=== PATIENT | male | born 1955 | race African-American/Black ===

== ENCOUNTER 2017-04-08 15:00 | Emergency (ER) | payer MEDICAID, SELFPAY ==
[2017-04-08 15:02] VITALS: BP 155/108; PULSE 96; RESP 17; TEMP 37.4; O2SAT 100; BMI 21.6
--- NOTE | 2017-04-08 15:18 | EKG12_ITS ---
Test Reason : ABDOMINAL PAIN Blood Pressure : / mmHG Vent. Rate : 065 BPM Atrial Rate : 076 BPM P-R Int : 154 ms QRS Dur : 090 ms QT Int : 382 ms P-R-T Axes : 072 048 069 degrees QTc Int : 397 ms Sinus rhythm with marked sinus arrhythmia Otherwise normal ECG Confirmed by SHERLEY FRANCIS, NAVJOT ([id number]), blueprint engineer DON SERRA ([id number] on 04/10/2017 12:59:12 PM Referred By: DANY Confirmed By:NAVJOT LEPE MD
[2017-04-08] MEDS: Ondansetron 4 MG/2 ML Vial IV (15:30)
[2017-04-08] MEDS: 0.9% Normal Saline 1,000 ML 1000 ML IV (15:30)
[2017-04-08] MEDS: HYDROmorphone 1 MG/ML Syringe 2 MG IV (15:30)
--- NOTE | 2017-04-08 15:38 | ED.VISSUMM ---
- ER Visit Summary Date of Service: 04/08/17 Chief Complaint: [Abdominal pain] History of Present Illness: The patient is a 61 M [resents to the emergency department chief complaint of abdominal discomfort that he has had for 7 -8 months. Patient has a history of chronic pancreatitis]. Patient normally takes Dilaudid 2 mg twice a day. Patient states that over last several days his pain medicines not helping. He describes severe pain in the epigastric region. Patient states that he is lost over 100 pounds in the last 7 or 8 months. Patient states he is having a hard time eating secondary to pain and nausea. Patient states that over last several days he has had urinary frequency. Patient denies any blood in his stool or black tarry stools. Patient has had small stools that have been hard and he is currently on a stool softener. Patient has prescription written for MiraLAX but has not started taking it yet. Physical Examination: [HEENT-PERRLA, EOMI. Cranial nerves II through XII grossly intact. TMs clear. Mucous membranes moist. No adenopathy. Cardiovascular-regular rate and rhythm without murmur or ectopy Lungs-clear to auscultation, chest wall stable without crepitus or subcu emphysema Abdomen-normoactive bowel sounds, soft. Patient has tenderness in the epigastric region to left upper quadrant. There is no rebound, rigidity, or peritoneal signs. Extremities-intact ?4, normal range of motion, normal pulses, atraumatic] Test Results: [EKG obtained showed a sinus rhythm with a ventricular rate of 65 bpm with occasional PACs. CBC with differential showed a white blood cell count of 3.7, hemoglobin 13, hematocrit 37, platelets 153. Chemistries unremarkable. LFTs were normal. Lipase was 65. Troponin was less than 0.02. Lactate was 1.0.] Emergency Department Course and Treatment: [Patient was given 2 L normal saline fluid boluses. Patient was medicated with Dilaudid 2 mg IV and Zofran 4 mg IV. Patient felt markedly improved. At this point I do not feel any imaging is indicated as this is his typical abdominal pain.] Treatment Plan: [And apparently has had biopsy of his pancreas recently which did not show any evidence of malignancy as on last CAT scan performed in this department there was concern for possible malignancy of his pancreas. Patient does follow up with a precipitator operator in [place] who recommended potentially placing a stent in his pancreatic ducts to help with the discomfort. Advised to follow-up with his precipitator operator.] Disposition: [Discharged to home in stable condition.] Impression: [Acute exacerbation of chronic abdominal pain] This note was generated with [employer] dictation software. It may contain incorrect words, spelling, and punctuation that were not noted in review of the chart prior to signing ED Disposition - Plan for ED Patient: Chief Complaint: Abd Pain Referrals: Gerald Irving DO [Primary Care Provider] -
[2017-04-08 15:41] LABS: Absolute Lymphocyte Count 1.11 X10^3/ul (0.83-4.51); Absolute Neutrophil Count 2.3 X10^3/uL (2.0-7.7); Basophil# 0.02 X10^3/uL; Basophil% 0.5 % (0-1); Eosinophil# 0.03 X10^3/uL; Eosinophils% 0.8 % (0-5); Hematocrit 36.8 % (40-54); Hemoglobin 13.1 g/dl (13.0-16.5); Lymphocyte # 1.11 X10^3/ul (4.0); Lymphocyte % 29.8 % (19-41); Mean Corp Hgb Conc 35.6 g/gl (32-36); Mean Corpuscular Hgb 31.6 pg (27.0-32.0); Mean Corpuscular Volume 88.7 fL (80-94); Mean Platelet Vol. 10.1 fl (6.2-12.0); Neutrophil # 2.27 X10^3/uL (2.7-7.7); Neutrophil % 60.9 % (47-70); POSITIVE COUNT NO; POSITIVE DIFFERENTIAL NO; POSITIVE MORPHOLOGY NO; Platelet Count 153 K/mm3 (150-450); RBC Distribution Width CV 11.9 % (11.6-14.6); RBC Distribution Width SD 38.1 fl (35.1-43.9); Red Blood Count 4.15 M/mm3 (4.6-6.2); White Blood Count 3.7 K/mm3 (4.4-11.0)
--- NOTE | 2017-04-08 15:41 | ED.DCSUM_ITS ---
- ER Visit Summary Date of Service: 04/08/17 Chief Complaint: [Abdominal pain] History of Present Illness: The patient is a 61 M [resents to the emergency department chief complaint of abdominal discomfort that he has had for 7 -8 months. Patient has a history of chronic pancreatitis]. Patient normally takes Dilaudid 2 mg twice a day. Patient states that over last several days his pain medicines not helping. He describes severe pain in the epigastric region. Patient states that he is lost over 100 pounds in the last 7 or 8 months. Patient states he is having a hard time eating secondary to pain and nausea. Patient states that over last several days he has had urinary frequency. Patient denies any blood in his stool or black tarry stools. Patient has had small stools that have been hard and he is currently on a stool softener. Patient has prescription written for MiraLAX but has not started taking it yet. Physical Examination: [HEENT-PERRLA, EOMI. Cranial nerves II through XII grossly intact. TMs clear. Mucous membranes moist. No adenopathy. Cardiovascular-regular rate and rhythm without murmur or ectopy Lungs-clear to auscultation, chest wall stable without crepitus or subcu emphysema Abdomen-normoactive bowel sounds, soft. Patient has tenderness in the epigastric region to left upper quadrant. There is no rebound, rigidity, or peritoneal signs. Extremities-intact ?4, normal range of motion, normal pulses, atraumatic] Test Results: [EKG obtained showed a sinus rhythm with a ventricular rate of 65 bpm with occasional PACs. CBC with differential showed a white blood cell count of 3.7, hemoglobin 13, hematocrit 37, platelets 153. Chemistries unremarkable. LFTs were normal. Lipase was 65. Troponin was less than 0.02. Lactate was 1.0.] Emergency Department Course and Treatment: [Patient was given 2 L normal saline fluid boluses. Patient was medicated with Dilaudid 2 mg IV and Zofran 4 mg IV. Patient felt markedly improved. At this point I do not feel any imaging is indicated as this is his typical abdominal pain.] Treatment Plan: [And apparently has had biopsy of his pancreas recently which did not show any evidence of malignancy as on last CAT scan performed in this department there was concern for possible malignancy of his pancreas. Patient does follow up with a tool machine setup operator in [place] who recommended potentially placing a stent in his pancreatic ducts to help with the discomfort. Advised to follow-up with his tool machine setup operator.] Disposition: [Discharged to home in stable condition.] Impression: [Acute exacerbation of chronic abdominal pain] This note was generated with [employer] dictation software. It may contain incorrect words, spelling, and punctuation that were not noted in review of the chart prior to signing ED Disposition - Plan for ED Patient: Chief Complaint: Abd Pain Referrals: Gerald Irving DO [Primary Care Provider] -
[2017-04-08 16:16] LABS: ALB/GLOB Ratio 1.1 RATIO (0.9-2.4); AST(SGOT) 11 U/L (15-37); Alanine Aminotransfer ALT/SGPT 18 U/L (16-61); Albumin, Serum 4.2 g/dL (3.2-5.0); Alkaline Phosphatase 58 U/L (45-117); Anion Gap 10 (5-15); BUN 14 mg/dL (7-18); BUN/Creat Ratio 14.2 RATIO (10-20); Calcium,Total 9.7 mg/dL (8.5-10.1); Chloride 101 mmol/L (98-107); Creatinine, Serum 0.98 mg/dL (0.70-1.30); EST Glomerular Filtration Rate 83 mL/min (>60); Est Glom Filt Rate - Afr Amer 100 mL/min (>60); Estimated Creatinine Clearance 76.34 ml/min; Globulin 3.7 g/dL (2.2-4.2); Glucose 123 mg/dL (74-106); Lipase 65 U/L (73-393); Potassium 3.8 mmol/L (3.5-5.1); Protein, Total 7.9 g/dL (6.4-8.2); Sodium Level 136 mmol/L (136-145)
[2017-04-08] MEDS: 0.9% Normal Saline 1,000 ML 999 ML IV (16:26)
[2017-04-08 16:33] LABS: Bacteria 0 SEEN /hpf (None Seen); Color, Urine Yellow (Yellow); Glucose, Dipstick Normal (Normal); Ketone-Dipstick Negative (Negative); Leukocyte Esterase-Dipstick Negative /ul (Negative); Mucous, Urine 0 SEEN /hpf (<or=2+); Nitrite-Dipstick Negative (Negative); Occult Blood-Urine Negative /ul (Negative); Protein-Dipstick 30 mg/dl (Negative); Specific Gravity, Urine 1.015 (1.002-1.030); Urine Bilirubin Dipstick Negative (Negative); Urine Clarity Clear (Clear); Urine Urobilinogen Normal (Normal); White Blood Cells 0 SEEN /hpf (0-5)
[2017-04-08 16:40] LABS: Red Blood Cells-Urine 0-5 SEEN /hpf (0-5); Squamous Epithelial Cells - UA 0-5 SEEN /hpf (0-5)
--- NOTE | 2017-04-08 17:09 | DCINST.ED_ITS ---
ED Disposition - Plan for ED Patient: Chief Complaint: Abd Pain Instructions: ED Abdominal Pain Unkn Cause Referrals: Gerald Irving DO [Primary Care Provider] - 3-5 Days Additional Instructions: follow up with your radiological health specialist in 3-5 days
[2017-04-08 17:10] VITALS: BP 134/92; PULSE 75; RESP 16; O2SAT 100
[2017-04-08 17:14] VITALS: BP 137/92; PULSE 75; RESP 16; O2SAT 100
== END 2017-04-08 17:18 | disposition home or self-care (01) ==
LOC: ED 16:10
PROVIDERS: Emergency Provider Emergency Medicine; Family Provider Family Medicine; PCP Family Medicine
DX: R10.9 Unspecified abdominal pain (principal); G89.29 Other chronic pain; R11.0 Nausea; I49.1 Atrial premature depolarization; I10 Essential (primary) hypertension; Z79.82 Long term (current) use of aspirin; Z79.899 Other long term (current) drug therapy; Z85.46 Personal history of malignant neoplasm of prostate; Z87.19 Personal history of other diseases of the digestive system
CPT/HCPCS: 80053; 81001; 83605; 83690; 84484; 85025; 93005; 96361; 96374; 96375; 99283; J7030; A4216; J2405

== ENCOUNTER 2017-04-18 10:53 | Emergency (ER) | payer MEDICAID, SELFPAY ==
[2017-04-18 10:54] VITALS: BP 169/123; PULSE 119; RESP 17; TEMP 37.3; O2SAT 100; BMI 21.1
[2017-04-18 11:57] LABS: Absolute Lymphocyte Count 0.88 X10^3/ul (0.83-4.51); Absolute Neutrophil Count 3.9 X10^3/uL (2.0-7.7); Basophil# 0.01 X10^3/uL; Basophil% 0.2 % (0-1); Eosinophil# 0.01 X10^3/uL; Eosinophils% 0.2 % (0-5); Hematocrit 39.1 % (40-54); Hemoglobin 13.7 g/dl (13.0-16.5); Lymphocyte # 0.88 X10^3/ul (4.0); Lymphocyte % 17.4 % (19-41); Mean Corpuscular Hgb 30.9 pg (27.0-32.0); Mean Corpuscular Volume 88.1 fL (80-94); Mean Platelet Vol. 9.7 fl (6.2-12.0); Monocyte# 0.29 X10^3/uL; Monocyte% 5.7 % (0-10); Neutrophil # 3.86 X10^3/uL (2.7-7.7); Neutrophil % 76.5 % (47-70); POSITIVE COUNT NO; POSITIVE DIFFERENTIAL NO; POSITIVE MORPHOLOGY NO; Platelet Count 174 K/mm3 (150-450); RBC Distribution Width CV 12.6 % (11.6-14.6); RBC Distribution Width SD 40.5 fl (35.1-43.9); Red Blood Count 4.44 M/mm3 (4.6-6.2); White Blood Count 5.1 K/mm3 (4.4-11.0)
[2017-04-18] MEDS: 0.9% Normal Saline 1,000 ML 1000 ML IV (12:03)
[2017-04-18] MEDS: Ondansetron 4 MG/2 ML Vial IV ×2 (12:03→13:32)
[2017-04-18] MEDS: HYDROmorphone 1 MG/ML Syringe IV ×2 (12:03→13:32)
[2017-04-18 12:14] LABS: AST(SGOT) 11 U/L (15-37); Alanine Aminotransfer ALT/SGPT 17 U/L (16-61); Albumin, Serum 4.5 g/dL (3.2-5.0); Alkaline Phosphatase 58 U/L (45-117); Anion Gap 13 (5-15); BUN 10 mg/dL (7-18); BUN/Creat Ratio 11.3 RATIO (10-20); Bilirubin, Direct 0.36 mg/dL (0.00-0.30); Calcium,Total 10.5 mg/dL (8.5-10.1); Chloride 97 mmol/L (98-107); Creatinine, Serum 0.89 mg/dL (0.70-1.30); EST Glomerular Filtration Rate 93 mL/min (>60); Est Glom Filt Rate - Afr Amer 113 mL/min (>60); Estimated Creatinine Clearance 81.99 ml/min; Glucose 100 mg/dL (74-106); Lipase 56 U/L (73-393); Potassium 3.9 mmol/L (3.5-5.1); Protein, Total 8.5 g/dL (6.4-8.2); Sodium Level 133 mmol/L (136-145)
[2017-04-18] MEDS: 0.9% Normal Saline 1,000 ML 150 ML IV (13:37)
[2017-04-18 13:40] VITALS: BP 154/97; PULSE 98; RESP 16; O2SAT 96
--- NOTE | 2017-04-18 14:12 | ED.DCSUM_ITS ---
- ER Visit Summary Date of Service: 04/18/17 Chief Complaint: Abdominal pain History of Present Illness: The patient is a 61 M with a history of chronic pancreatitis. Patient states that his pancreatitis pain flared again 2 days ago. He has had some nausea and vomiting at home. He normally takes 2 mg capsules at home for pain control. States he has not been able to keep his pain meds down. He has not noted a fever. Patient states that he had an outpatient CT scan done at [facility] today. He states he was told to let us know that so that it was not repeated again. Physical Examination: Blood pressure is 169/123, temperature 99.2, heart rate 119, respiratory rate 17, pulse ox 100% on room air. Patient's lying supine in the bed. He appears uncomfortable. He is nontoxic appearing. Head and neck examination is unremarkable. Heart is slightly tachycardic and regular. Lung sounds are clear. Abdomen is soft with focal tenderness in the epigastric region. No tenderness in the right upper quadrant. He has hypoactive bowel sounds. Test Results: CBC is normal. Chemistry studies reveal a sodium of 133 and a chloride of 97. LFTs show total bili 1.5 and direct bili 0.36, otherwise values are normal. Emergency Department Course and Treatment: Patient was initially given 1 mg of Dilaudid, 4 mg of Zofran, and IV fluids. On repeat evaluation he reports his pain is improved but not resolved. An additional dose of Dilaudid was given. On final repeat exam patient is sitting upright in bed, smiling. He states that his symptoms are much improved. He states he has nausea and pain meds at home to use. Treatment Plan: [] Disposition: Discharge Impression: Abdominal pain with chronic pancreatitis This note was generated with [employer] dictation software. It may contain incorrect words, spelling, and punctuation that were not noted in review of the chart prior to signing ED Disposition - Plan for ED Patient: Disposition: Home or Assisted Living Chief Complaint: Abd Pain Instructions: Discharge Instructions for Chronic Pancreatitis Referrals: Gerald Irving DO [Primary Care Provider] -
[2017-04-18 14:47] VITALS: BP 139/78; PULSE 81; RESP 16; O2SAT 97
== END 2017-04-18 14:51 | disposition home or self-care (01) ==
PROVIDERS: Emergency Provider Emergency Medicine; Family Provider Family Medicine; PCP Family Medicine
DX: K86.1 Other chronic pancreatitis (principal); R11.2 Nausea with vomiting, unspecified; R10.9 Unspecified abdominal pain; R00.0 Tachycardia, unspecified; Z79.82 Long term (current) use of aspirin; Z79.899 Other long term (current) drug therapy; Z87.891 Personal history of nicotine dependence
CPT/HCPCS: 80048; 80076; 83690; 85025; 96361; 96374; 96375; 96376; 99285; J7030; A4216; J2405

== ENCOUNTER 2017-04-23 11:28 | Emergency (ER) | payer MEDICAID, SELFPAY ==
[2017-04-23 11:28] VITALS: BP 167/100; PULSE 124; RESP 12; TEMP 37.6; O2SAT 100; BMI 21.3
[2017-04-23] MEDS: 0.9% Normal Saline 1,000 ML 999 ML IV ×2 (12:02)
[2017-04-23] MEDS: HYDROmorphone 1 MG/ML Syringe 2 MG IV (12:02)
[2017-04-23 12:19] LABS: Absolute Lymphocyte Count 1.06 X10^3/ul (0.83-4.51); Absolute Neutrophil Count 3.5 X10^3/uL (2.0-7.7); Basophil# 0.02 X10^3/uL; Basophil% 0.4 % (0-1); Hematocrit 36.9 % (40-54); Hemoglobin 13.1 g/dl (13.0-16.5); Lymphocyte # 1.06 X10^3/ul (4.0); Lymphocyte % 21.9 % (19-41); Mean Corp Hgb Conc 35.5 g/gl (32-36); Mean Corpuscular Hgb 30.8 pg (27.0-32.0); Mean Corpuscular Volume 86.8 fL (80-94); Mean Platelet Vol. 9.9 fl (6.2-12.0); Monocyte# 0.29 X10^3/uL; Neutrophil # 3.48 X10^3/uL (2.7-7.7); Neutrophil % 71.7 % (47-70); Platelet Count 184 K/mm3 (150-450); RBC Distribution Width CV 12.5 % (11.6-14.6); RBC Distribution Width SD 40.3 fl (35.1-43.9); Red Blood Count 4.25 M/mm3 (4.6-6.2); White Blood Count 4.9 K/mm3 (4.4-11.0)
[2017-04-23 12:22] LABS: ALB/GLOB Ratio 1.2 RATIO (0.9-2.4); AST(SGOT) 9 U/L (15-37); Alanine Aminotransfer ALT/SGPT 17 U/L (16-61); Albumin, Serum 4.6 g/dL (3.2-5.0); Alkaline Phosphatase 55 U/L (45-117); Amylase 58 U/L (25-115); Anion Gap 10 (5-15); BUN 15 mg/dL (7-18); BUN/Creat Ratio 14.3 RATIO (10-20); Calcium,Total 10.1 mg/dL (8.5-10.1); Chloride 100 mmol/L (98-107); Creatinine, Serum 1.05 mg/dL (0.70-1.30); EST Glomerular Filtration Rate 77 mL/min (>60); Est Glom Filt Rate - Afr Amer 93 mL/min (>60); Estimated Creatinine Clearance 70.18 ml/min; Globulin 3.8 g/dL (2.2-4.2); Glucose 134 mg/dL (74-106); Lipase 66 U/L (73-393); Potassium 3.6 mmol/L (3.5-5.1); Protein, Total 8.4 g/dL (6.4-8.2); Sodium Level 134 mmol/L (136-145)
[2017-04-23 12:32] LABS: POSITIVE COUNT NO; POSITIVE DIFFERENTIAL NO; POSITIVE MORPHOLOGY NO
[2017-04-23 12:33] LABS: Lactic Acid 1.6 mmol/L (0.4-2.0)
[2017-04-23 14:24] VITALS: BP 148/89; PULSE 92; RESP 17; O2SAT 96
[2017-04-23 14:44] LABS: Bacteria 0 SEEN /hpf (None Seen); Color, Urine Yellow (Yellow); Glucose, Dipstick Normal (Normal); Ketone-Dipstick Negative (Negative); Mucous, Urine 0 SEEN /hpf (<or=2+); Red Blood Cells-Urine 0 SEEN /hpf (0-5); Urine Bilirubin Dipstick Negative (Negative); Urine Clarity Sl. Cloudy (Clear); White Blood Cells 0 SEEN /hpf (0-5)
[2017-04-23 14:45] LABS: Leukocyte Esterase-Dipstick Negative /ul (Negative); Nitrite-Dipstick Negative (Negative); Occult Blood-Urine Negative /ul (Negative); Protein-Dipstick 15 mg/dl (Negative); Specific Gravity, Urine 1.005 (1.002-1.030); Urine Urobilinogen Normal (Normal)
[2017-04-23 14:51] LABS: Squamous Epithelial Cells - UA 0-5 SEEN /hpf (0-5)
[2017-04-23] MEDS: HYDROmorphone 1 MG/ML Syringe IV (15:58)
--- NOTE | 2017-04-23 15:59 | ED.DCSUM_ITS ---
- ER Visit Summary Date of Service: 04/23/17 Chief Complaint: Chronic pancreatitis History of Present Illness: The patient is a 61 M Who has chronic pancreatitis. He has home Dilaudid. States over the past week his pain has been worse. He has an upcoming appointment May [address] [facility] to have a biopsy of his pancreas. He had one performed in August 12 that was negative but they are concerned as a spot has grown. He notes decreased sleep because of the nausea vomiting. He notes that his children. He notes a slight cough. He sees Giovanny Vega at [facility] for gastroenterology. Physical Examination: Afebrile vital signs are stable. Gen: Well-nourished well-developed patient is shaking in the bed constantly moving and bringing his blankets up and down. Head: Normocephalic atraumatic Eyes: Perrl EOMI ENT: TMs clear no rhinorrhea moist mucous membranes Neck: Supple no lymphadenopathy no JVD nontender CVS: Tachycardic regular rate rhythm no murmurs normal S1-S2 Respiratory: No distress clear to auscultation bilaterally chest nontender Abdomen: Soft tender to palpation nondistended normal bowel sounds no masses Back: Nontender Extremity: Nontender no edema Skin: Normal color no rash Neuro: alert orientated ?3 CN II-XII intact normal strength sensation reflexes gait cerebellar Psych: Normal affect normal mood Test Results: CBC BMP liver lipase negative. Lactic acid 1.6. Influenza negative. Urinalysis with a specific gravity of 1.005. Emergency Department Course and Treatment: he received Dilaudid and 2 L of IV fluids. His heart rate is down he is resting more comfortably in the bed is no longer shaking. Patient will be discharged home to follow-up with his doctors as scheduled return if worsening. Impression: 1. Chronic pancreatitis This note was generated with [employer] dictation software. It may contain incorrect words, spelling, and punctuation that were not noted in review of the chart prior to signing ED Disposition - Plan for ED Patient: Disposition: Home or Assisted Living Chief Complaint: Abd Pain Instructions: Discharge Instructions for Chronic Pancreatitis Referrals: Gerald Irving DO [Primary Care Provider] -
[2017-04-23 16:00] VITALS: BP 172/100; PULSE 89; RESP 16; O2SAT 100
[2017-04-23 16:05] VITALS: BP 172/100; PULSE 89; RESP 16; O2SAT 100
== END 2017-04-23 16:06 | disposition home or self-care (01) ==
PROVIDERS: Emergency Provider Emergency Medicine; Family Provider Family Medicine; PCP Family Medicine
DX: K86.1 Other chronic pancreatitis (principal); R05 Cough; Z79.82 Long term (current) use of aspirin; Z79.899 Other long term (current) drug therapy
CPT/HCPCS: 80053; 81001; 82150; 83605; 83690; 85025; 87804; 96361; 96374; 96375; 96376; 99283; J7030; A4216

== ENCOUNTER 2017-05-22 12:58 | Emergency (ER) | payer MEDICAID, SELFPAY ==
[2017-05-22 12:59] VITALS: BP 159/122; PULSE 114; RESP 20; TEMP 37.3; O2SAT 100; BMI 20.8
[2017-05-22 13:31] VITALS: PULSE 97; RESP 16; O2SAT 100
[2017-05-22] MEDS: HYDROmorphone 1 MG/ML Syringe 2 MG IV (14:14)
[2017-05-22] MEDS: 0.9% Normal Saline 1,000 ML 125 ML IV (14:14)
[2017-05-22] MEDS: Ondansetron 4 MG/2 ML Vial IV (14:14)
[2017-05-22 14:15] LABS: Absolute Lymphocyte Count 0.62 X10^3/ul (0.83-4.51); Absolute Neutrophil Count 2.7 X10^3/uL (2.0-7.7); Basophil# 0.02 X10^3/uL; Basophil% 0.6 % (0-1); Hematocrit 35.9 % (40-54); Hemoglobin 12.3 g/dl (13.0-16.5); Lymphocyte # 0.62 X10^3/ul (4.0); Lymphocyte % 17.8 % (19-41); Mean Corp Hgb Conc 34.3 g/gl (32-36); Mean Corpuscular Hgb 31.1 pg (27.0-32.0); Mean Corpuscular Volume 90.9 fL (80-94); Mean Platelet Vol. 9.7 fl (6.2-12.0); Monocyte# 0.13 X10^3/uL; Monocyte% 3.7 % (0-10); Neutrophil # 2.71 X10^3/uL (2.7-7.7); Neutrophil % 77.9 % (47-70); POSITIVE COUNT NO; POSITIVE DIFFERENTIAL NO; POSITIVE MORPHOLOGY NO; Platelet Count 169 K/mm3 (150-450); RBC Distribution Width CV 12.9 % (11.6-14.6); RBC Distribution Width SD 43.4 fl (35.1-43.9); Red Blood Count 3.95 M/mm3 (4.6-6.2); White Blood Count 3.5 K/mm3 (4.4-11.0)
[2017-05-22 14:35] LABS: ALB/GLOB Ratio 1.2 RATIO (0.9-2.4); AST(SGOT) 14 U/L (15-37); Alanine Aminotransfer ALT/SGPT 25 U/L (16-61); Albumin, Serum 4.3 g/dL (3.2-5.0); Alkaline Phosphatase 78 U/L (45-117); Anion Gap 10 (5-15); BUN 10 mg/dL (7-18); BUN/Creat Ratio 12.4 RATIO (10-20); Calcium,Total 10.2 mg/dL (8.5-10.1); Chloride 99 mmol/L (98-107); Creatinine, Serum 0.81 mg/dL (0.70-1.30); EST Glomerular Filtration Rate 104 mL/min (>60); Est Glom Filt Rate - Afr Amer 126 mL/min (>60); Estimated Creatinine Clearance 88.83 ml/min; Globulin 3.7 g/dL (2.2-4.2); Glucose 133 mg/dL (74-106); Lipase 47 U/L (73-393); Potassium 3.5 mmol/L (3.5-5.1); Sodium Level 135 mmol/L (136-145)
[2017-05-22 15:00] VITALS: BP 154/97; PULSE 93; RESP 14; O2SAT 100
[2017-05-22 15:20] LABS: Mucous, Urine 0 SEEN /hpf (<or=2+); Red Blood Cells-Urine 0 SEEN /hpf (0-5); White Blood Cells 0 SEEN /hpf (0-5)
[2017-05-22 15:24] LABS: Color, Urine Yellow (Yellow); Glucose, Dipstick Normal (Normal); Ketone-Dipstick 15 mg/dl (Negative); Leukocyte Esterase-Dipstick Negative /ul (Negative); Nitrite-Dipstick Negative (Negative); Occult Blood-Urine Negative /ul (Negative); Protein-Dipstick 30 mg/dl (Negative); Specific Gravity, Urine 1.015 (1.002-1.030); Urine Bilirubin Dipstick Negative (Negative); Urine Clarity Clear (Clear); Urine Urobilinogen Normal (Normal)
[2017-05-22 15:32] VITALS: TEMP 37.1
--- NOTE | 2017-05-22 15:55 | ED.DCSUM_ITS ---
- ER Visit Summary Date of Service: 05/22/17 Chief Complaint: [Abdominal pain] History of Present Illness: The patient is a 61 M [presents to the emergency department with abdominal pain that started 5 or 6 months ago. Patient states that he has a history of chronic pancreatitis and this is the same pain that he normally gets. Patient has not had any nausea or vomiting. Patient was seen by a specialist who is going to do a laparoscopic biopsy of his pancreas as there apparently is a mass on his pancreas. Patient has had several biopsies of this mass that have come back normal. Patient has been losing weight. Patient normally takes Dilaudid at home for pain but it has not been helping his pain over the last several days. Patient has had multiple exacerbations like this in the past.] Physical Examination: [HEENT-PERRLA, EOMI. Cranial nerves II through XII grossly intact. TMs clear. Mucous membranes moist. No adenopathy. Cardiovascular-regular rate and rhythm without murmur or ectopy Lungs-clear to auscultation, chest wall stable without crepitus or subcu emphysema Abdomen-normoactive bowel sounds, soft. Patient has tenderness to the epigastric region with some guarding. There is no rebound, rigidity, or perineal signs. Extremities-intact ?4, normal range of motion, normal pulses, atraumatic] Test Results: [CBC with differential showed a white blood cell count of 3.5, hemoglobin 12, hematocrit 36, platelets 169. Chemistries unremarkable. LFTs were normal. Lipase was 47. Urinalysis was normal.] Emergency Department Course and Treatment: [Patient was given Dilaudid and Zofran and a liter normal same fluid bolus. Initially he felt much improved however his pain started to come back and he was given 1 more milligram of Dilaudid IV. Treatment Plan: [I offered to admit patient for pain control however he states that he would prefer to try to go home as he does have some pain medicine at home and try to get to his appointment next Sunday to have his biopsy. At this point I do not feel any imaging is indicated as patient has had multiple CT scans of the abdomen last year and he also tells me he had one recently through the [facility] and does not want any further imaging as this pain is typical of his prior chronic pain.] Disposition: [Discharged to home in stable condition]. Patient advised to return if worsening pain, fever, vomiting, or condition should worsen in any way. Impression: [Acute exacerbation of chronic abdominal pain and chronic pancreatitis] This note was generated with nivio dictation software. It may contain incorrect words, spelling, and punctuation that were not noted in review of the chart prior to signing ED Disposition - Plan for ED Patient: Chief Complaint: Abd Pain Referrals: Gerald Irving DO [Primary Care Provider] -
--- NOTE | 2017-05-22 15:55 | ED.DEP ---
ED Disposition - Plan for ED Patient: Chief Complaint: Abd Pain Instructions: ED Abdominal Pain Unkn Cause, ED Pancreatitis Referrals: Gerald Irving DO [Primary Care Provider] - 3-5 Days Additional Instructions: keep your appointment with your surgeon
[2017-05-22] MEDS: HYDROmorphone 1 MG/ML Syringe IV (16:03)
[2017-05-22 16:10] LABS: Bacteria 1+ /hpf (None Seen); Squamous Epithelial Cells - UA 0-5 SEEN /hpf (0-5)
[2017-05-22 16:39] VITALS: BP 146/98; PULSE 86; RESP 14; O2SAT 98
== END 2017-05-22 16:40 | disposition home or self-care (01) ==
PROVIDERS: Emergency Provider Emergency Medicine; Family Provider Family Medicine; PCP Family Medicine
DX: R10.9 Unspecified abdominal pain (principal); G89.29 Other chronic pain; K86.1 Other chronic pancreatitis; Z79.82 Long term (current) use of aspirin; Z79.899 Other long term (current) drug therapy
CPT/HCPCS: 80053; 81001; 83690; 85025; 96361; 96374; 96375; 96376; 99284; J7030; A4216; J2405

== ENCOUNTER 2017-05-27 08:38 | Emergency (ER) | payer MEDICAID, SELFPAY ==
[2017-05-27 08:39] VITALS: BP 163/109; PULSE 125; RESP 17; TEMP 37.3; O2SAT 100; BMI 20.8
--- NOTE | 2017-05-27 08:48 | ED.DCSUM_ITS ---
- ER Visit Summary Date of Service: 05/27/17 Chief Complaint: Abdominal pain History of Present Illness: The patient is a 61 M presenting with abdominal pain. He states this worsened yesterday. He has a history of chronic pancreatitis. He takes Dilaudid at home. He states he ran out of his medications yesterday. He does have a refill but he states the pharmacy is out of the medication. He has an appointment tomorrow at [facility] for pancreatic biopsy. He has had 2 biopsies in the past with normal results per patient. He has nausea with no vomiting. Denies fever or other complaints. Physical Examination: Vitals are stable. Patient is afebrile. Alert no acute distress. HEENT exam is unremarkable. Neck is supple. Lungs are clear and equal bilaterally. Heart is regular rate and rhythm. Abdomen is soft epigastric tenderness, no rebound or guarding. Extremities are unremarkable. Skin is warm and dry. Remainder of exam is unremarkable. Emergency Department Course and Treatment: Patient is given IV fluids, Zofran, Dilaudid with improvement. Repeat HR 102. CBC, chemistries unremarkable other than sodium 131, glucose 176, BUN 22. Total bili is 1.10. Lipase is 57. Patient's pain is controlled. He is able to tolerate p.o. fluids. He has an appointment at [facility] tomorrow. He is advised to keep this appointment. Advised return to ED if worsening complaints. Disposition: Discharge home Impression: Chronic abdominal pain, chronic pancreatitis This note was generated with [employer] dictation software. It may contain incorrect words, spelling, and punctuation that were not noted in review of the chart prior to signing ED Disposition - Plan for ED Patient: Chief Complaint: Abd Pain Referrals: Gerald Irving DO [Primary Care Provider] -
[2017-05-27] MEDS: 0.9% Normal Saline 1,000 ML 1000 ML IV (08:59)
[2017-05-27] MEDS: HYDROmorphone 1 MG/ML Syringe IV ×2 (08:59→10:18)
[2017-05-27] MEDS: Ondansetron 4 MG/2 ML Vial IV (08:59)
[2017-05-27 09:12] LABS: Absolute Lymphocyte Count 0.74 X10^3/ul (0.83-4.51); Absolute Neutrophil Count 3.7 X10^3/uL (2.0-7.7); Basophil# 0.01 X10^3/uL; Basophil% 0.2 % (0-1); Eosinophil# 0.01 X10^3/uL; Eosinophils% 0.2 % (0-5); Hematocrit 39.3 % (40-54); Hemoglobin 13.9 g/dl (13.0-16.5); Lymphocyte # 0.74 X10^3/ul (4.0); Lymphocyte % 15.8 % (19-41); Mean Corp Hgb Conc 35.4 g/gl (32-36); Mean Corpuscular Hgb 31.7 pg (27.0-32.0); Mean Corpuscular Volume 89.7 fL (80-94); Monocyte# 0.19 X10^3/uL; Monocyte% 4.1 % (0-10); Neutrophil # 3.71 X10^3/uL (2.7-7.7); Neutrophil % 79.5 % (47-70); POSITIVE COUNT NO; POSITIVE DIFFERENTIAL NO; POSITIVE MORPHOLOGY NO; Platelet Count 188 K/mm3 (150-450); RBC Distribution Width CV 12.2 % (11.6-14.6); RBC Distribution Width SD 39.7 fl (35.1-43.9); Red Blood Count 4.38 M/mm3 (4.6-6.2); White Blood Count 4.7 K/mm3 (4.4-11.0)
[2017-05-27 09:27] LABS: AST(SGOT) 24 U/L (15-37); Alanine Aminotransfer ALT/SGPT 43 U/L (16-61); Albumin, Serum 4.6 g/dL (3.2-5.0); Alkaline Phosphatase 92 U/L (45-117); Anion Gap 6 (5-15); BUN 22 mg/dL (7-18); Bilirubin, Direct 0.23 mg/dL (0.00-0.30); Calcium,Total 10.4 mg/dL (8.5-10.1); Chloride 97 mmol/L (98-107); EST Glomerular Filtration Rate 81 mL/min (>60); Est Glom Filt Rate - Afr Amer 98 mL/min (>60); Estimated Creatinine Clearance 72.11 ml/min; Globulin 4.2 g/dL (2.2-4.2); Glucose 176 mg/dL (74-106); Lipase 57 U/L (73-393); Protein, Total 8.8 g/dL (6.4-8.2); Sodium Level 131 mmol/L (136-145)
--- NOTE | 2017-05-27 09:56 | ED.DEP ---
ED Disposition - Plan for ED Patient: Chief Complaint: Abd Pain Instructions: Understanding Pancreatitis Referrals: Gerald Irving DO [Primary Care Provider] -
[2017-05-27 10:24] VITALS: BP 151/88; PULSE 100; RESP 16; O2SAT 98
== END 2017-05-27 10:26 | disposition home or self-care (01) ==
PROVIDERS: Emergency Provider Emergency Medicine; Family Provider Family Medicine; PCP Family Medicine
DX: R10.9 Unspecified abdominal pain (principal); G89.29 Other chronic pain; K86.1 Other chronic pancreatitis; I10 Essential (primary) hypertension; K21.9 Gastro-esophageal reflux disease without esophagitis; Z79.82 Long term (current) use of aspirin; Z79.899 Other long term (current) drug therapy
CPT/HCPCS: 80048; 80076; 83690; 85025; 96361; 96374; 96375; 96376; 99283; J7030; A4216; J2405

== ENCOUNTER 2017-07-02 20:26 | Emergency (ER) | payer MEDICAID, SELFPAY ==
[2017-07-02 20:27] VITALS: BP 156/110; PULSE 123; RESP 22; TEMP 37.9; O2SAT 100; BMI 20.7
[2017-07-02 20:46] VITALS: PULSE 108; RESP 18; TEMP 37.2; O2SAT 100
--- NOTE | 2017-07-02 20:52 | ED.DCSUM_ITS ---
- ER Visit Summary Date of Service: 07/02/17 Chief Complaint: Abdominal pain History of Present Illness: The patient is a 61 M has a history of chronic pancreatitis who underwent laparotomy for definitive diagnosis of his mass on his pancreas on May 28 at [facility]. He tells me that it came back positive for pancreatic cancer. He has appointment tomorrow to discuss the results with Dr. Valdivia about getting chemotherapy. Patient states he has not had much of an appetite has not been doing his Ensure drinks as often as he should. He is unable to tolerate fluids. Patient denies any fevers. He states his bowel movements been very irregular but he states that it is most likely because he is not eating. Physical Examination: Triage temperature was noted and oral temperature taken by nurse in the room is 99. Heart rate 123 blood pressure 156/100 respiratory rate of 20s. Gen: Well-nourished well-developed Head: Normocephalic atraumatic Eyes: Perrl EOMI ENT: TMs clear no rhinorrhea moist mucous membranes Neck: Supple no lymphadenopathy no JVD nontender CVS: Tachycardic regular rate rhythm no murmurs normal S1-S2 Respiratory: No distress clear to auscultation bilaterally chest nontender Abdomen: Soft there is a well-healed incision midline of the abdomen. Mildly tender to palpation. Nondistended normal bowel sounds no masses Back: Nontender Extremity: Nontender no edema Skin: Normal color no rash Neuro: alert orientated ?3 CN II-XII intact normal strength sensation reflexes gait cerebellar Psych: Normal affect normal mood Test Results: Basic labs were unremarkable. Emergency Department Course and Treatment: She received IV fluids Zofran and Dilaudid. Heart rate is down to 91 is been resting comfortably. He will be discharged home to follow-up as scheduled tomorrow. Impression: 1. Acute abdominal pain 2. Chronic pancreatitis 3. Reported pancreatic cancer This note was generated with [employer] dictation software. It may contain incorrect words, spelling, and punctuation that were not noted in review of the chart prior to signing ED Disposition - Plan for ED Patient: Disposition: Home or Assisted Living Chief Complaint: Abd Pain Instructions: ED Pancreatitis Referrals: Gerald Irving DO [Primary Care Provider] - As soon as possible Ina Valdivia MD [STAFF PHYSICIAN] - Keep Tayo appointment
[2017-07-02] MEDS: Ondansetron 4 MG/2 ML Vial IV (21:03)
[2017-07-02] MEDS: HYDROmorphone 1 MG/ML Syringe 2 MG IV (21:03)
[2017-07-02] MEDS: 0.9% Normal Saline 1,000 ML 1000 ML IV (21:04)
[2017-07-02 21:28] LABS: Absolute Lymphocyte Count 0.79 X10^3/ul (0.83-4.51); Absolute Neutrophil Count 2.9 X10^3/uL (2.0-7.7); Basophil# 0.01 X10^3/uL; Basophil% 0.3 % (0-1); Eosinophil# 0.01 X10^3/uL; Eosinophils% 0.3 % (0-5); Hematocrit 36.8 % (40-54); Hemoglobin 12.6 g/dl (13.0-16.5); Lymphocyte # 0.79 X10^3/ul (4.0); Lymphocyte % 20.3 % (19-41); Mean Corp Hgb Conc 34.2 g/gl (32-36); Mean Corpuscular Volume 90.6 fL (80-94); Mean Platelet Vol. 9.1 fl (6.2-12.0); Monocyte# 0.23 X10^3/uL; Monocyte% 5.9 % (0-10); Neutrophil # 2.85 X10^3/uL (2.7-7.7); Neutrophil % 73.2 % (47-70); Platelet Count 182 K/mm3 (150-450); RBC Distribution Width CV 12.6 % (11.6-14.6); RBC Distribution Width SD 42.1 fl (35.1-43.9); Red Blood Count 4.06 M/mm3 (4.6-6.2); White Blood Count 3.9 K/mm3 (4.4-11.0)
[2017-07-02 21:31] LABS: POSITIVE COUNT NO; POSITIVE DIFFERENTIAL NO; POSITIVE MORPHOLOGY NO
[2017-07-02 21:50] VITALS: PULSE 91; RESP 19; O2SAT 99
[2017-07-02 21:52] LABS: ALB/GLOB Ratio 1.2 RATIO (0.9-2.4); AST(SGOT) 39 U/L (15-37); Alanine Aminotransfer ALT/SGPT 93 U/L (16-61); Albumin, Serum 4.1 g/dL (3.2-5.0); Alkaline Phosphatase 136 U/L (45-117); Anion Gap 10 (5-15); BUN 18 mg/dL (7-18); BUN/Creat Ratio 17.6 RATIO (10-20); Calcium,Total 9.8 mg/dL (8.5-10.1); Chloride 99 mmol/L (98-107); Creatinine, Serum 1.02 mg/dL (0.70-1.30); EST Glomerular Filtration Rate 79 mL/min (>60); Est Glom Filt Rate - Afr Amer 96 mL/min (>60); Estimated Creatinine Clearance 70.04 ml/min; Globulin 3.5 g/dL (2.2-4.2); Glucose 103 mg/dL (74-106); Lipase 37 U/L (73-393); Potassium 3.4 mmol/L (3.5-5.1); Protein, Total 7.6 g/dL (6.4-8.2); Sodium Level 134 mmol/L (136-145)
[2017-07-02 22:42] VITALS: BP 157/97; PULSE 83; RESP 23; O2SAT 99
--- NOTE | 2017-07-02 22:59 | ED.RN ---
PT GIVEN WRITTEN AND VERBAL DISCHARGE INSTRUCTIONS. PT AND SPOUSE VERBALIZE UNDERSTANDING. PT DENIES ANY FURTHER QUESTIONS. IV D/C AND COVERED WITH PAPER TAPE. MINIMAL BLEEDING NOTED. PT AMBULATORY OUT OF DEPT. WITH SPOUSE. PT TO FOLLOW UP WITH DR. HERRERA TOMORROW MORNING.
== END 2017-07-02 23:00 | disposition home or self-care (01) ==
PROVIDERS: Emergency Provider Emergency Medicine; Family Provider Family Medicine; PCP Family Medicine
DX: R10.9 Unspecified abdominal pain (principal); K86.1 Other chronic pancreatitis; C25.9 Malignant neoplasm of pancreas, unspecified; R11.0 Nausea; Z79.82 Long term (current) use of aspirin; Z79.899 Other long term (current) drug therapy
CPT/HCPCS: 80053; 83690; 85025; 96361; 96374; 96375; 99283; J7030; A4216

== ENCOUNTER 2017-07-20 18:20 | Emergency (ER) | payer MEDICAID, SELFPAY ==
[2017-07-20 18:21] VITALS: BP 180/117; PULSE 131; RESP 16; TEMP 36.2; O2SAT 100; BMI 20.2
[2017-07-20 18:34] VITALS: TEMP 37.9
[2017-07-20 18:54] VITALS: PULSE 102; RESP 24; O2SAT 100
[2017-07-20] MEDS: proMETHazine 25 MG/ML Syringe 12.5 MG IV (19:26)
[2017-07-20] MEDS: 0.9% Normal Saline 1,000 ML 1000 ML IV (19:26)
[2017-07-20] MEDS: HYDROmorphone 1 MG/ML Syringe IV ×2 (19:27→21:17)
[2017-07-20 19:33] LABS: Absolute Lymphocyte Count 0.28 X10^3/ul (0.83-4.51); Absolute Neutrophil Count 1.9 X10^3/uL (2.0-7.7); Hematocrit 31.5 % (40-54); Lymphocyte # 0.28 X10^3/ul (4.0); Lymphocyte % 12.6 % (19-41); Mean Corp Hgb Conc 34.9 g/gl (32-36); Mean Corpuscular Hgb 31.2 pg (27.0-32.0); Mean Corpuscular Volume 89.2 fL (80-94); Mean Platelet Vol. 9.4 fl (6.2-12.0); Monocyte# 0.01 X10^3/uL; Monocyte% 0.5 % (0-10); Neutrophil # 1.93 X10^3/uL (2.7-7.7); Neutrophil % 86.9 % (47-70); Platelet Count 135 K/mm3 (150-450); RBC Distribution Width CV 12.4 % (11.6-14.6); Red Blood Count 3.53 M/mm3 (4.6-6.2); White Blood Count 2.2 K/mm3 (4.4-11.0)
[2017-07-20 19:35] LABS: Differential Indicated SCAN CRITERIA MET; POSITIVE COUNT NO; POSITIVE DIFFERENTIAL YES; POSITIVE MORPHOLOGY NO
[2017-07-20 19:45] LABS: ALB/GLOB Ratio 1.1 RATIO (0.9-2.4); AST(SGOT) 24 U/L (15-37); Alanine Aminotransfer ALT/SGPT 56 U/L (16-61); Albumin, Serum 3.8 g/dL (3.2-5.0); Alkaline Phosphatase 115 U/L (45-117); Anion Gap 7 (5-15); BUN 12 mg/dL (7-18); BUN/Creat Ratio 11.8 RATIO (10-20); Calcium,Total 9.7 mg/dL (8.5-10.1); Chloride 98 mmol/L (98-107); Creatinine, Serum 1.02 mg/dL (0.70-1.30); EST Glomerular Filtration Rate 79 mL/min (>60); Est Glom Filt Rate - Afr Amer 96 mL/min (>60); Estimated Creatinine Clearance 68.54 ml/min; Globulin 3.4 g/dL (2.2-4.2); Glucose 178 mg/dL (74-106); Lipase 34 U/L (73-393); Potassium 3.7 mmol/L (3.5-5.1); Protein, Total 7.2 g/dL (6.4-8.2); Sodium Level 132 mmol/L (136-145)
[2017-07-20 19:54] LABS: Lactic Acid 1.9 mmol/L (0.4-2.0)
[2017-07-20 20:06] LABS: Differential Comment SCANNED
[2017-07-20 20:21] VITALS: BP 155/100; PULSE 88; RESP 14; O2SAT 100
[2017-07-20] MEDS: 0.9% Normal Saline 1,000 ML 125 ML IV (21:17)
[2017-07-20 22:07] VITALS: BP 150/99; PULSE 82; RESP 11; O2SAT 99
--- NOTE | 2017-07-20 22:39 | ED.VISSUMM ---
- ER Visit Summary Date of Service: 07/20/17 Chief Complaint: Abdominal pain History of Present Illness: The patient is a 61 M who is recently been diagnosed with pancreatic cancer. He underwent his first chemotherapy today. Patient notes increased epigastric pain. He denies any vomiting but does note nausea. He has home Dilaudid. Physical Examination: Afebrile vital signs show a slight tachycardia Patient has tenderness in his epigastric region. As the patient is known to me he is clearly lost a significant amount of weight in fact almost 100 pounds. Patient's mucous membranes are moist. Test Results: Basic labs showed a white count of 2.2. Hemoglobin 11. Lipase 34. Lactic acid 1.9. Emergency Department Course and Treatment: Patient received IV fluids Dilaudid and Zofran. He is tolerating p.o. and resting more comfortably. He will be discharged home return if worsening. Impression: 1. Acute on chronic abdominal pain 2. Pancreatic cancer This note was generated with [employer] dictation software. It may contain incorrect words, spelling, and punctuation that were not noted in review of the chart prior to signing ED Disposition - Plan for ED Patient: Disposition: Home or Assisted Living Chief Complaint: Abd Pain Instructions: Discharge Instructions for Cancer of the Pancreas Referrals: Gerald Irving DO [Primary Care Provider] - Keep Tayo appointment
[2017-07-20 23:06] VITALS: BP 154/107; PULSE 82; RESP 18; O2SAT 100
== END 2017-07-20 23:07 | disposition home or self-care (01) ==
PROVIDERS: Emergency Provider Emergency Medicine; Family Provider Family Medicine; PCP Family Medicine
DX: R10.13 Epigastric pain (principal); G89.29 Other chronic pain; C25.9 Malignant neoplasm of pancreas, unspecified; I10 Essential (primary) hypertension; N40.0 Benign prostatic hyperplasia without lower urinary tract symptoms; Z79.899 Other long term (current) drug therapy; Z87.891 Personal history of nicotine dependence
CPT/HCPCS: 80053; 83605; 83690; 85025; 96361; 96374; 96375; 96376; 99283; J7030; A4216

== ENCOUNTER 2017-08-05 15:31 | Observation (INO) | payer MEDICAID, SELFPAY ==
--- NOTE | 2017-08-05 13:13 | EKG12_ITS ---
Test Reason : SYNCOPE Blood Pressure : / mmHG Vent. Rate : 083 BPM Atrial Rate : 083 BPM P-R Int : 156 ms QRS Dur : 084 ms QT Int : 366 ms P-R-T Axes : 074 047 068 degrees QTc Int : 430 ms Sinus rhythm with Premature supraventricular complexes Otherwise normal ECG Confirmed by SHERLEY FRANCIS, NAVJOT ([id number]), design editor DON SERRA ([id number]) on 08/08/2017 5:44:45 PM Referred By: Julio Huff Confirmed By:NAVJOT LEPE MD
--- NOTE | 2017-08-05 18:45 | DT_ITS ---
This patient was seen during an EMR downtime July 30, 2017 - August 06, 2017. This patient may have a combination of paper and electronic documentation or all paper documentation. All documentation is viewable within the e-chart portion of [employer] for each patient visit.
[2017-08-06] MEDS: HYDROmorphone 0.5 MG/0.5 ML SYRINGE IV ×4 (00:50→13:56)
[2017-08-06] MEDS: Ondansetron 4 MG/2 ML Vial IV (02:05)
[2017-08-06] MEDS: HYDROmorphone 2 MG TABLET 4 MG PO ×4 (04:00→12:06)
[2017-08-06 05:56] LABS: Hematocrit 27.1 % (40-54); Hemoglobin 9.4 g/dl (13.0-16.5); Mean Corp Hgb Conc 34.7 g/gl (32-36); Mean Corpuscular Hgb 32.2 pg (27.0-32.0); Mean Corpuscular Volume 92.8 fL (80-94); Mean Platelet Vol. 9.4 fl (6.2-12.0); Platelet Count 237 K/mm3 (150-450); RBC Distribution Width CV 11.9 % (11.6-14.6); RBC Distribution Width SD 39.1 fl (35.1-43.9); Red Blood Count 2.92 M/mm3 (4.6-6.2); White Blood Count 3.2 K/mm3 (4.4-11.0)
[2017-08-06] MEDS: Heparin Injection 5,000 UNITS/ML Syringe 5000 UNITS SC (06:00)
[2017-08-06 06:09] LABS: Anion Gap 8 (5-15); BUN 18 mg/dL (7-18); BUN/Creat Ratio 23.7 RATIO (10-20); Calcium,Total 8.5 mg/dL (8.5-10.1); Chloride 101 mmol/L (98-107); Creatinine, Serum 0.76 mg/dL (0.70-1.30); EST Glomerular Filtration Rate 112 mL/min (>60); Est Glom Filt Rate - Afr Amer 136 mL/min (>60); Glucose 97 mg/dL (74-106); Potassium 4.1 mmol/L (3.5-5.1); Sodium Level 135 mmol/L (136-145)
[2017-08-06 06:41] LABS: Scan Indicated on CBC? Y/N NO
[2017-08-06] MEDS: Polyethylene Glycol 3350 17 GM PACKET PO (10:06)
[2017-08-06 10:10] VITALS: BP 121/94; BP 130/84; BP 137/98; PULSE 107; PULSE 118; PULSE 84
[2017-08-06 10:17] VITALS: BP 121/94; PULSE 107; RESP 16; TEMP 37.1; O2SAT 100
[2017-08-06] MEDS: 0.9% Normal Saline 1,000 ML 175 ML IV (12:08)
--- NOTE | 2017-08-06 13:32 | PCM.DC ---
You will use the following diet at home:: No restrictions Your food should be the consistency of: Regular Your liquids should be the consistency of: Regular/Thin Discharge Activity: Return to Normal Activity, May not drive while taking narcotic pain medications. Call your doctor if you observe: - - worsening abdominal pain. intractable nausea/vomiting. Allergies/Adverse Reactions: Allergies No Known Allergies Allergy (Verified 07/20/17 19:30) Medications to take at Discharge Tamsulosin HCl [Flomax] 0.4 mg PO DAILY 07/27/15 Amlodipine [Norvasc] 10 mg PO DAILY 11/20/16 HYDROmorphone tablet [Dilaudid] 4 mg PO 4X/DAY 11/20/16 Metoclopramide [Reglan] 10 mg PO 4X/DAY PRN #20 tablet 11/20/16 Polyethylene Glycol 3350 [Miralax] 17 gm PO QODAY 04/18/17 Digestive 8/L.acidoph/Pectin [Digestive Enzymes Tablet] 1 each PO 4X/DAY 04/23/17 DiphenhydrAMINE Liquid [Benadryl Liquid] 25 mg PO BID PRN PRN 05/22/17 Acetaminophen [Tylenol Tablet] 500 mg PO Q6H PRN PRN tablet 08/06/17 Chlorpromazine HCl 25 mg PO TID PRN #30 tab 08/06/17 Lactulose [Chronulac] 20 gm PO DAILY PRN #30 udc 08/06/17 Nystatin 500,000 unit PO 4X/DAY #28 udc 08/06/17 The following prescriptions were given: Lactulose [Chronulac] 20 gm PO DAILY PRN #30 udc PRN Reason: Constipation Chlorpromazine HCl 25 mg PO TID PRN #30 tab PRN Reason: intractable hiccups Nystatin 500,000 unit PO 4X/DAY #28 udc Primary Care Physician: Gerald Irving DO [Primary Care Provider] - Within 2 Weeks Please Follow Up With: Ina Valdivia MD When: 2 weeks Proposed Discharge Date: 08/06/17
--- NOTE | 2017-08-06 13:35 | PCM.DC.SUM ---
Discharge Date and Diagnosis - Problem List Patient Problems: Active and Suspected Problems Orthostatic hypotension (Acute) Intractable hiccups (Acute) Thrush (Acute) Date of Admission: 08/05/17 Date of Discharge: 08/06/17 - Primary Discharge Diagnosis Active and Suspected Problems Orthostatic hypotension (Acute) Intractable hiccups (Acute) Thrush (Acute) Hospital Course and Treatment Operations: None Procedures: None Summary of Care Provided: The patient is a 61 year old M presents with lightheadedness and syncope. Patient was having nausea and fatigue and decreased appetite. Patient was noted to be an orthostatic hypotension with a systolic down into the 70s. Patient received IV fluids and today his orthostasis has resolved. Patient is tolerating some diet at this time. Patient states that just food just does not taste well to him. Patient also does complain of hiccups that he has had for months. It is intermittent at times. Patient also is also does complain of indigestion as well. I have recommended Thorazine for his hiccups. Patient states that he would prefer to hold off on that. I told him that I would hand him a physical prescription and that if the hiccups to get bad enough that he can take up the prescription. Patient had a whitish plaque on the top of his soft palate unclear that is really thrush but given the lack of taste the patient is developed recommended nystatin. I told patient that it would may not be helped helpful but it would be well-tolerated. Patient also does have constipation which she does not have bowel movements except for every fourth day. He only takes MiraLAX for that. I have advised Dulcolax as well as lactulose as needed. I advised PPI for the patient as needed for indigestion. Patient states that he has taken Prilosec in the past but stopped that due to concerns over the side effects. I told him that he could use Prilosec versus Protonix versus Nexium or Prevacid which are [id number]. On physical exam Vital Signs Height 1.75 m Weight: 59.4 kg Weight in Pounds 131.0 lbs Pulse Ox 100 Temperature 37.1 C Pulse Rate [Standing] 118 Pulse Rate [Sitting] 107 Pulse Rate [Lying] 84 Pulse Rate 107 Respiratory Rate 16 Blood Pressure [Standing] 137/98 Blood Pressure [Sitting] 121/94 Blood Pressure [Lying] 130/84 Blood Pressure 121/94 Blood Pressure Position Sitting Is no acute distress and afebrile. Flat affect. Afebrile. Heart is regular rate and rhythm plus S1-S2 without murmurs capture rubs. Lungs are clear to auscultation bilaterally. Abdomen is nondistended, diffusely tender. Hypoactive bowel sounds. Discussed with the patient's girlfriend at bedside. [] Discharge Diet: No Restrictions Discharge Activity: Return to Normal Activity, May not drive while taking narcotic pain medications. Call your doctor if you observe: - - worsening abdominal pain. intractable nausea/vomiting. Home Medications: Medications to take at Discharge Tamsulosin HCl [Flomax] 0.4 mg PO DAILY 07/27/15 Amlodipine [Norvasc] 10 mg PO DAILY 11/20/16 HYDROmorphone tablet [Dilaudid] 4 mg PO 4X/DAY 11/20/16 Metoclopramide [Reglan] 10 mg PO 4X/DAY PRN #20 tablet 11/20/16 Polyethylene Glycol 3350 [Miralax] 17 gm PO QODAY 04/18/17 Digestive 8/L.acidoph/Pectin [Digestive Enzymes Tablet] 1 each PO 4X/DAY 04/23/17 DiphenhydrAMINE Liquid [Benadryl Liquid] 25 mg PO BID PRN PRN 05/22/17 Acetaminophen [Tylenol Tablet] 500 mg PO Q6H PRN PRN tablet 08/06/17 Chlorpromazine HCl 25 mg PO TID PRN #30 tab 08/06/17 Lactulose [Chronulac] 20 gm PO DAILY PRN #30 udc 08/06/17 Nystatin 500,000 unit PO 4X/DAY #28 udc 08/06/17 Following Prescrptions Were Given to Patient: Lactulose [Chronulac] 20 gm PO DAILY PRN #30 udc PRN Reason: Constipation Chlorpromazine HCl 25 mg PO TID PRN #30 tab PRN Reason: intractable hiccups Nystatin 500,000 unit PO 4X/DAY #28 udc Primary Care Physician: Gerald Irving DO [Primary Care Provider] - Within 2 Weeks Please Follow Up With: Ina Valdivia MD When: 2 weeks Disposition: Home Minutes spent on discharge:: 32 Patient Condition:: Fair Medical Necessity - Tobacco Use Smoking Status: Never smoker Meaningful Use Info Meaningful Use Diagnoses (Choose all that apply): None applicable Code Visit OBSV E&M: 60932 Observation care discharge
[2017-08-06 14:20] VITALS: BP 134/96; PULSE 83; RESP 16; TEMP 37.1; O2SAT 100
[2017-08-06] MEDS: 0.9% NaCl VAD Flush 10 ML IV (14:44)
[2017-08-07 08:23] LABS: Anion Gap 9 (5-15); BUN 20 mg/dL (7-18); BUN/Creat Ratio 21.7 RATIO (10-20); Chloride 94 mmol/L (98-107); Creatinine, Serum 0.92 mg/dL (0.70-1.30); EST Glomerular Filtration Rate 89 mL/min (>60); Est Glom Filt Rate - Afr Amer 108 mL/min (>60); Glucose 135 mg/dL (74-106); Potassium 3.6 mmol/L (3.5-5.1); Sodium Level 129 mmol/L (136-145)
[2017-08-07 10:59] LABS: Absolute Lymphocyte Count 0.63 X10^3/ul (0.83-4.51); Eosinophil# 0.01 X10^3/uL; Eosinophils% 0.2 % (0-5); Hematocrit 30.2 % (40-54); Hemoglobin 10.5 g/dl (13.0-16.5); Lymphocyte # 0.63 X10^3/ul (4.0); Lymphocyte % 13.2 % (19-41); Mean Corp Hgb Conc 34.8 g/gl (32-36); Mean Corpuscular Hgb 32.2 pg (27.0-32.0); Mean Corpuscular Volume 92.5 fL (80-94); Mean Platelet Vol. 9.2 fl (6.2-12.0); Monocyte% 2.1 % (0-10); Neutrophil # 4.02 X10^3/uL (2.7-7.7); Neutrophil % 84.5 % (47-70); POSITIVE COUNT NO; POSITIVE DIFFERENTIAL NO; POSITIVE MORPHOLOGY NO; Platelet Count 251 K/mm3 (150-450); RBC Distribution Width SD 39.5 fl (35.1-43.9); Red Blood Count 3.26 M/mm3 (4.6-6.2); White Blood Count 4.8 K/mm3 (4.4-11.0)
== END 2017-08-06 14:56 | disposition home or self-care (01) ==
LOC: ED 18:47 → MS3 18:48
PROVIDERS: Admitting Provider Internal Medicine; Emergency Provider Emergency Medicine; Family Provider Family Medicine; PCP Family Medicine
DX: I95.1 Orthostatic hypotension (principal); B37.9 Candidiasis, unspecified; R06.6 Hiccough; C25.9 Malignant neoplasm of pancreas, unspecified; Z79.899 Other long term (current) drug therapy; R00.2 Palpitations; E87.1 Hypo-osmolality and hyponatremia; R11.2 Nausea with vomiting, unspecified; I10 Essential (primary) hypertension; Z85.46 Personal history of malignant neoplasm of prostate
CPT/HCPCS: 80048; 84484; 85025; 85027; 93005; 96372; 96374; 96375; 96376; 99218; J7030; A4216; G0378; J2405

== ENCOUNTER → 2017-12-17 10:23 | Outpatient (CLI) | payer MEDICAID, SELFPAY ==
[2017-12-17 12:41] LABS: ALB/GLOB Ratio 0.7 RATIO (0.9-2.4); AST(SGOT) 20 U/L (15-37); Alanine Aminotransfer ALT/SGPT 20 U/L (16-61); Albumin, Serum 2.9 g/dL (3.2-5.0); Alkaline Phosphatase 76 U/L (45-117); Anion Gap 7 (5-15); BUN 19 mg/dL (7-18); BUN/Creat Ratio 13.2 RATIO (10-20); Calcium,Total 8.8 mg/dL (8.5-10.1); Chloride 105 mmol/L (98-107); Creatinine, Serum 1.44 mg/dL (0.70-1.30); EST Glomerular Filtration Rate 53 mL/min (>60); Est Glom Filt Rate - Afr Amer 64 mL/min (>60); Globulin 4.1 g/dL (2.2-4.2); Glucose 85 mg/dL (74-106); Potassium 3.7 mmol/L (3.5-5.1); Sodium Level 140 mmol/L (136-145); Thyroid Stim Hormone (TSH) 1.55 uIU/mL (0.358-3.74)
[2017-12-17 12:49] LABS: Hemoglobin A1c 5.5 % (4.2-6.3)
[2017-12-17 12:51] LABS: Vitamin B12 916 pg/mL (211-911)
== END ==
PROVIDERS: Visit Provider Family Medicine
DX: C25.9 Malignant neoplasm of pancreas, unspecified (principal); R35.8 Other polyuria; R20.2 Paresthesia of skin; Z51.81 Encounter for therapeutic drug level monitoring
CPT/HCPCS: 36415; 80053; 82607; 83036; 84443

== ENCOUNTER → 2018-04-10 16:52 | Outpatient (CLI) | payer MEDICAID, SELFPAY ==
[2018-04-10 17:06] LABS: Absolute Neutrophil Count 2.4 X10^3/uL (2.0-7.7); Basophil# 0.04 X10^3/uL; Basophil% 0.8 % (0-1); Eosinophil# 0.04 X10^3/uL; Eosinophils% 0.8 % (0-5); Hematocrit 29.6 % (40-54); Hemoglobin 9.6 g/dl (13.0-16.5); Lymphocyte % 30.5 % (19-41); Mean Corp Hgb Conc 32.4 g/gl (32-36); Mean Corpuscular Hgb 33.3 pg (27.0-32.0); Mean Corpuscular Volume 102.8 fL (80-94); Mean Platelet Vol. 10.3 fl (6.2-12.0); Monocyte# 0.89 X10^3/uL; Monocyte% 18.1 % (0-10); Neutrophil # 2.43 X10^3/uL (2.7-7.7); Neutrophil % 49.6 % (47-70); Platelet Count 273 K/mm3 (150-450); RBC Distribution Width CV 18.5 % (11.6-14.6); RBC Distribution Width SD 66.3 fl (35.1-43.9); Red Blood Count 2.88 M/mm3 (4.6-6.2); White Blood Count 4.9 K/mm3 (4.4-11.0)
[2018-04-10 17:12] LABS: Differential Indicated SCAN CRITERIA MET; POSITIVE COUNT NO; POSITIVE DIFFERENTIAL NO; POSITIVE MORPHOLOGY YES
[2018-04-10 17:50] LABS: Anisocytosis 1+; Macrocytosis 1+; Schistocytes RARE
[2018-04-11 13:17] LABS: Pathologist Review Reviewed
== END ==
PROVIDERS: Referring Provider Internal Medicine Hematology & Oncology; Visit Provider Internal Medicine Hematology & Oncology
DX: D64.9 Anemia, unspecified (principal); N19 Unspecified kidney failure
CPT/HCPCS: 85025